=== PATIENT | male | born 1945 | race Asian ===

== ENCOUNTER 2016-06-22 18:21 | Inpatient (IN) | payer OTHER ==
--- NOTE | 2016-06-22 18:41 | CPEKG ---
Heart Rate: 90 RR Interval: 667 P-R Interval: 140 QRSD Interval: 84 QT Interval: 380 QTC Interval: 465 P Moab: 57 QRS Moab: 96 T Wave Moab: -33 EKG Severity - BORDERLINE ECG - EKG Impression: SINUS RHYTHM EKG Impression: PROBABLE LEFT ATRIAL ABNORMALITY EKG Impression: RIGHT AXIS DEVIATION EKG Impression: BORDERLINE T ABNORMALITIES, INFERIOR LEADS Electronically Signed By: Leslie Underwood 22-Jun-2016 21:51:27
[2016-06-22 18:50] LABS: % IMMATURE GRANULYOCYTES 0.4 % (0.0-1.1); ABSOLUTE IMMATURE GRANULOCYTES 0.03 10^3/uL (0.00-0.10); ADD DIFF? NO; ADD MORPH? NO; ADD SCAN? NO; ATYPICAL LYMPHOCYTE FLAG 90 (0-99); FRAGMENT RBC FLAG 20 (0-99); HEMATOCRIT 35.2 % (40.0-51.0); HEMOGLOBIN 11.3 g/dL (13.7-17.5); LEFT SHIFT FLG 0 (0-99); LIPEMIA HEMOLYSIS FLAG 80 (0-99); MEAN CELL HEMOGLOBIN 25.8 pg (27.9-34.1); MEAN CELL HEMOGLOBIN CONCENTR. 32.1 g/dL (32.4-36.7); MEAN CELL VOLUME 80.4 fL (81.5-99.8); MEAN PLATELET VOLUME 10.9 fL (8.7-11.7); PLATELET CLUMPS FLAG 0 (0-99); PLATELET COUNT 233 10^3/uL (150-400); RED BLOOD CELL COUNT 4.38 10^6/uL (4.40-6.38); RED CELL DISTRIBUTION WIDTH 17.5 % (11.5-15.2)
[2016-06-22 19:04] LABS: ANION GAP 10 mEq/L (8-16); CALCIUM 7.2 mg/dL (8.5-10.4); CARBON DIOXIDE 22 mEq/l (22-31); CHLORIDE 102 mEq/L (97-110); CREATININE 1.8 mg/dL (0.7-1.3); GLOMERULAR FILTRATION RATE 37; GLUCOSE 88 mg/dL (70-100); POTASSIUM 4.3 mEq/L (3.5-5.2); SODIUM 134 mEq/L (134-144)
--- NOTE | 2016-06-22 19:05 | DX ---
PA and lateral chest. June 22, 2016. Clinical History: Dyspnea. Comparison Study: March 06, 2016. Findings: Surgical features of median sternotomy are again noted, with moderate cardiac enlargement. Right pleural effusion/fibrosis is unchanged. Small left pleural effusion is present, stable. Pulmona ry vascular prominence and patchy infiltrates in the central aspects of both lungs appear new, potent ially related to congestive failure and interstitial pulmonary edema.. Impression: Status post CABG. Suspect early congestive heart failure with central pulmonary vascular prominence. Stable bilateral pleural disease..
[2016-06-22 19:15] LABS: TROPONIN I 0.016 ng/mL (0-0.034)
--- NOTE | 2016-06-22 19:15 | EDPHY ---
H & P Time Seen by Provider: 06/22/16 18:48 HPI/ROS: CHIEF COMPLAINT: weakness HISTORY OF PRESENT ILLNESS: Patient is a 70-year-old male who presents to the emergency department with fatigue, weakness, shortness of breath and cough. The patient was admitted to the hospital at [facility] on 06/10/2016. They were told that he had a heart attack. On the hospital he became ill and was diagnosed with HCAP septic shock. He was discharged the day before yesterday. He began to feel poorly yesterday. He asked his to take him to the hospital. She recommended they see how he do over the next day. His symptoms were worse today. He describes fatigue and cough. He has severe shortness of breath. He denies chest pain. No nausea or vomiting. No diaphoresis or fever. REVIEW OF SYSTEMS: My complete review of systems is negative except as mentioned in the HPI. Past Medical/Surgical History: Includes encephalopathy, community-acquired pneumonia, chronic kidney disease, ACS, acute IL, gout, pleural effusion, thrombocytopenia, hypokalemia, hyperlipidemia, hypertension, septic shock Smoking Status: Never smoked Physical Exam: Vitals noted. Oxygen saturation 92%. GENERAL: Moderate acute respiratory, alert. HEENT: Eyes normal to inspection, normal pharynx, no signs of dehydration. NECK: No thyromegaly, no lymphadenopathy, supple. RESPIRATORY: Rales bilaterally, mild rhonchi, wheezing. CVS: Regular rate and rhythm, no rubs, murmurs, or gallops. ABDOMEN: Soft, nontender, nondistended, no organomegaly. BACK: Normal to inspection, no CVA tenderness. SKIN: Normal color, no rash, warm, dry. No pallor. EXTREMITIES: No pedal edema, no calf tenderness, no Homans sign or cords, no joint swelling. NEURO/PSYCH: Alert and oriented x3, normal mood and affect, normal motor sensory exam. No obvious cranial nerve deficit. Constitutional: Initial Vital Signs Temperature (C) 37.2 C 06/22/16 18:31 Heart Rate 92 06/22/16 18:31 Respiratory Rate 28 H 06/22/16 18:31 Blood Pressure 171/100 H 06/22/16 18:31 O2 Sat (%) 92 06/22/16 18:31 O2 Delivery Mode Nasal Cannula O2 (L/minute) 2 Allergies/Adverse Reactions: No Known Allergies Allergy (Verified 10/04/15 16:19) Home Medications: Medication Instructions Recorded Metoprolol Tartrate [Lopressor 25 25 mg PO BID 08/10/13 mg (*)] Aspirin EC [Aspirin EC 81 mg (*)] 81 mg PO DAILY 01/23/16 Atorvastatin Calcium [Lipitor 80 80 mg PO HS 06/22/16 mg] oxyCODONE HCL/ACETAMINOPHEN 1 each PO Q4HRS PRN 06/22/16 [Percocet 5-325 mg Tablet] Medical Decision Making - Diagnostics EKG Interpretation: Sinus rhythm at 90. Left atrial abnormality. Right axis deviation. No significant change from previous EKG. No acute ischemia. ED Course/Re-evaluation: In the emergency department I reviewed the patient's discharge paperwork from [facility]. I ordered previous laboratory studies. It is noted patient was diagnosed with HCAP with septic shock. The patient appeared to have respiratory distress on arrival. Respiratory therapist was contacted to try course of BiPAP. Initial chest x-ray showed bilateral infiltrates. I contacted Dr. Bautista from the hospital service for admission. He recommended Zosyn and vancomycin. This was ordered. An arterial blood gas is pending. The patient was given Solu-Medrol 125 mg IV for possible COPD exacerbation. Patient was also given Lasix 40 mg IV for possible CHF. Patient tolerated BiPAP well. I again had a consultation with Dr. Bautista. He requested cardiac echo be ordered. This was completed. Dr. Dawson was informed of the ordered. I reviewed the patient's laboratory studies. PH 7.42, O2 80, CO2 29, base excess-4.3. Patient had normal white count is 7. Hematocrit low at 35. Platelets 233. Patient had an elevated creatinine of 1.8. This was compared with his previous values. He has had elevated creatinine in the past. Troponin is 0.016. BNP elevated at 6060. I discussed the results with patient and family. On recheck he was tolerating BiPAP. 1999: I again discussed the case with Dr. Bautista who was in the emergency department. The patient was tolerating BiPAP well. 2024: Patient is stable 2104: Patient is stable. Tolerating BiPAP well. Differential Diagnosis: My differential includes but is not limited to pneumonia, bacteremia, sepsis, empyema, CHF, ACS, acute IL, renal failure Critical Care Time: Patient required 40 minutes of critical care time. This was exclusive of any on unbundled procedure. This was due to patient's significant respiratory distress, significant time spent with the patient's family, review of his previous records, consultation with Internal Medicine. - Data Points Laboratory Results: Laboratory Results 06/22/16 18:40 06/22/16 18:40 06/22/16 18:40 WBC 7.13 10^3/uL (3.80-9.50) RBC 4.38 L 10^6/uL (4.40-6.38) Hgb 11.3 L g/dL (13.7-17.5) Hct 35.2 L % (40.0-51.0) MCV 80.4 L fL (81.5-99.8) MCH 25.8 L pg (27.9-34.1) MCHC 32.1 L g/dL (32.4-36.7) RDW 17.5 H % (11.5-15.2) Plt Count 233 10^3/uL (150-400) MPV 10.9 fL (8.7-11.7) Neut % (Auto) 68.4 % (39.3-74.2) Lymph % (Auto) 17.8 % (15.0-45.0) Juab % (Auto) 10.8 % (4.5-13.0) Eos % (Auto) 2.2 % (0.6-7.6) Baso % (Auto) 0.4 % (0.3-1.7) Nucleat RBC Rel Count 0.0 % (0.0-0.2) Absolute Neuts (auto) 4.87 10^3/uL (1.70-6.50) Absolute Lymphs (auto) 1.27 10^3/uL (1.00-3.00) Absolute Monos (auto) 0.77 10^3/uL (0.30-0.80) Absolute Eos (auto) 0.16 10^3/uL (0.03-0.40) Absolute Basos (auto) 0.03 10^3/uL (0.02-0.10) Absolute Nucleated RBC 0.00 10^3/uL (0-0.01) Immature Gran % 0.4 % (0.0-1.1) Immature Gran # 0.03 10^3/uL (0.00-0.10) PT 16.4 H SEC (12.0-15.0) INR 1.32 H (0.83-1.16) APTT 39.9 H SEC (23.0-38.0) Sodium 134 mEq/L (134-144) Potassium 4.3 mEq/L (3.5-5.2) Chloride 102 mEq/L (97-110) Carbon Dioxide 22 mEq/l (22-31) Anion Gap 10 mEq/L (8-16) BUN 17 mg/dL (7-23) Creatinine 1.8 H mg/dL (0.7-1.3) Estimated GFR 37 Glucose 88 mg/dL (70-100) Calcium 7.2 L mg/dL (8.5-10.4) Total Bilirubin 0.6 mg/dL (0.1-1.4) Troponin I 0.016 ng/mL (0-0.034) NT-Pro-B Natriuret Pep 6060 H pg/mL (0-125) Medications Given: Discontinued Medications Furosemide (Lasix Injection) 40 mg IVP EDNOW ONE Stop: 06/22/16 19:31 Last Admin: 06/22/16 19:38 Dose: 40 mg Vancomycin/Sodium Chloride (Vancomycin 1 Gm (Premix)) 250 mls @ 250 mls/hr IV EDNOW ONE PRN Reason: Protocol Stop: 06/22/16 20:20 Last Admin: 06/22/16 20:20 Dose: 250 mls Piperacillin/Tazobactam/Dextrose (Zosyn (Premix)) 100 mls @ 200 mls/hr IV EDNOW ONE PRN Reason: Protocol Stop: 06/22/16 19:49 Last Admin: 06/22/16 19:45 Dose: 100 mls Methylprednisolone Sodium Succinate (Solu-Medrol) 125 mg IVP EDNOW ONE Stop: 06/22/16 19:31 Last Admin: 06/22/16 19:35 Dose: 125 mg Departure - Departure Disposition: [facility] Inpatient Acute Clinical Impression: Dyspnea, Pneumonia Condition: Good
[2016-06-22] MEDS ORDERED: PIPERACILLIN/TAZO 4.5 GM/DEX 100 ML IV ONE (19:20)
[2016-06-22] MEDS ORDERED: VANCOMYCIN HCL/NORMAL SALINE 250 ML IV ONE (19:21)
[2016-06-22] MEDS ORDERED: methylPREDNISolone SOD SUCC 125 MG/2 ML VIAL IVP ONE (19:30)
[2016-06-22] MEDS ORDERED: FUROSEMIDE 40 MG/4 ML VIAL IVP ONE (19:30)
[2016-06-22 19:42] LABS: BASE EXCESS -4.3 mEq/L (-2.5-2.5); BICARBONATE 19 mEq/L (22-26); MEASURED OXYGEN SATURATION 96 % (92-95); PCO2 29 mmHg (34-38); PO2 80 mmHg (65-75); TCO2 20 mEq/L (23-27)
[2016-06-22] MEDS ORDERED: IPRATROPIUM/ALBUTEROL 3 ML DEYVIAL ONE (19:42)
[2016-06-22] MEDS ORDERED: ACETAMINOPHEN 325 MG TAB PO PRN (19:42)
[2016-06-22] MEDS ORDERED: ONDANSETRON DISINTEGRATING 4 MG TAB PO PRN (19:42)
[2016-06-22] MEDS ORDERED: ONDANSETRON 4 MG/2 ML VIAL IVP PRN (19:42)
[2016-06-22] MEDS ORDERED: oxyCODONE IR 5 MG TAB PO PRN (19:42)
[2016-06-22 19:44] LABS: BILIRUBIN,TOTAL 0.6 mg/dL (0.1-1.4)
[2016-06-22 20:01] LABS: INR 1.32 (0.83-1.16); PROTIME(PATIENT) 16.4 SEC (12.0-15.0)
[2016-06-22 20:02] LABS: APTT 39.9 SEC (23.0-38.0)
[2016-06-22] MEDS ORDERED: LORazepam 2 MG/ML INJ ONE (20:09)
--- NOTE | 2016-06-22 20:55 | GHP ---
[f rep st] HISTORY AND PHYSICAL DATE OF ADMISSION: 06/22/2016 CHIEF COMPLAINT: Trouble breathing. HISTORY OF PRESENT ILLNESS: This is a 70-year-old man who was just recently discharged from [facility] with a diagnosis of pneumonia, septic shock, and NSTEMI, who presents with dyspnea. This started yesterday. He tells me he has felt like he needs to cough, but is having trouble coughing. He felt very short of breath. It is very difficult for him to do minimal activity. He is denying any chest pain. PAST MEDICAL/SURGICAL HISTORY: 1. Coronary artery disease, status post CABG. 2. Hypertension. 3. Hyperlipidemia. 4. Gout. 5. History of pleural effusion requiring VATS. 6. Chronic kidney disease. MEDICATIONS: Please see medication reconciliation. ALLERGIES: None. SOCIAL HISTORY: He does not smoke and does not drink. He is and retired. FAMILY HISTORY: Parents are . REVIEW OF SYSTEMS: A 10-point review of systems is negative except per HPI. PHYSICAL EXAMINATION: VITAL SIGNS: Blood pressure is 139/85, heart rate is 84 , respiration rate is 32, satting 100% on 2 L, and temperature is 38.7. GENERAL : The patient is an uncomfortable man in moderate distress, breathing very rapidly, and having difficulty speaking in more than 1-word sentences. HEENT: Shows no scleral icterus. CARDIOVASCULAR: Exam shows him to be borderline tachycardic. There are no murmurs, rubs, or gallops. PULMONARY: Exam shows diffuse rhonchi and wheezes, as well as rales. ABDOMEN: Exam is soft, nontender, and nondistended. SKIN: Exam showed no rash. : Exam shows no Daly. NEUROLOGIC: Exam shows him to be alert and oriented x3. Moving all extremities. Nonfocal neurologic exam. PSYCHIATRIC: Exam shows a normal mood and affect. LABORATORY DATA: CBC shows a hemoglobin of 11.3. INR is 1.3. Blood gas shows respiratory alkalosis. Creatinine is 1.8. BNP is 6000. Troponin is 0.016. DATA: 1. I discussed with Dr. Underwood. We will plan to admit to the ED. 2. Chest x-ray which I personally viewed and interpreted shows diffuse bilateral infiltrates. He has pleural effusions as well. 3. ECG shows a sinus rhythm. He has flattening in his T-waves in II, III, and F. He has a right axis deviation. These findings are similar to the previous EKG. IMPRESSION AND PLAN: This is a 70-year-old man who presents in respiratory failure. 1. Respiratory failure, hypoxic: Clearly quite dyspneic. Respiratory alkalosis. Placing him on BiPAP now. He has diffuse bilateral infiltrates - these are somewhat chronic, he has a history of a VATS and pleurodesis. He is getting lasix. I considered PE, though I think it is less likely given the appearance of this chest x-ray. If he does not improve would strongly consider this diagnosis. Currently, other than his respiratory status, his vitals are relatively normal. The differential here includes pneumonia which I think is most likely given his fever; also consider acute heart failure given his history of CABG and diffuse bilateral infiltrates. He had been placed on broad- spectrum antibiotics. Blood cultures have been sent. A stat echocardiogram has been ordered. Troponins will be trended. Notably, his last EF was 75%, with a normal LV. He will be admitted to the ICU. 2. Acute on chronic kidney disease: Suspect this is hemodynamic. This may be actually his baseline. We will avoid nephrotoxins. We will avoid overly hydrating him right now given the concern for pleural effusions. 3. Code status: I discussed this extensively with both the patient, his son, and his . They are clear that he would not want to be intubated. We will try all other measures. 4. History of coronary artery disease, status post CABG: We will restart his cardiac medications when they are available. 5. VTE risk: He is moderate to high. I will place him on subcu heparin. ADDENDUM: echo report by Dr Dawson with normal EF, normal valves. /[id number]/MODL MTDD
[2016-06-22 21:31] LABS: COLOR PALE YELLOW; LEUKOCYTE ESTERASE,URINE NEGATIVE (NEGATIVE); NITRITE,URINE NEGATIVE (NEGATIVE)
[2016-06-22 21:38] LABS: WBC,URINE NONE SEEN /hpf (0-3)
[2016-06-22] MEDS: HEPARIN 5,000 UNIT/0.5 ML SYR SC SCH (22:39)
[2016-06-23] MEDS: methylPREDNISolone SOD SUCC 125 MG/2 ML VIAL IVP SCH ×3 (00:51→12:01)
[2016-06-23] MEDS: HEPARIN 5,000 UNIT/0.5 ML SYR SC SCH ×3 (06:08→21:30)
[2016-06-23] MEDS: PIPERACILLIN/TAZO 3.375 GM/DEX 50 ML IV SCH ×4 (06:08→23:48)
[2016-06-23 06:37] LABS: % IMMATURE GRANULYOCYTES 0.5 % (0.0-1.1); ABSOLUTE IMMATURE GRANULOCYTES 0.02 10^3/uL (0.00-0.10); ADD DIFF? NO; ADD MORPH? NO; ADD SCAN? NO; ATYPICAL LYMPHOCYTE FLAG 70 (0-99); FRAGMENT RBC FLAG 60 (0-99); HEMATOCRIT 35.8 % (40.0-51.0); HEMOGLOBIN 11.3 g/dL (13.7-17.5); LEFT SHIFT FLG 10 (0-99); LIPEMIA HEMOLYSIS FLAG 80 (0-99); MEAN CELL HEMOGLOBIN 25.1 pg (27.9-34.1); MEAN CELL HEMOGLOBIN CONCENTR. 31.6 g/dL (32.4-36.7); MEAN CELL VOLUME 79.4 fL (81.5-99.8); MEAN PLATELET VOLUME 10.5 fL (8.7-11.7); PLATELET CLUMPS FLAG 10 (0-99); PLATELET COUNT 188 10^3/uL (150-400); RED BLOOD CELL COUNT 4.51 10^6/uL (4.40-6.38); RED CELL DISTRIBUTION WIDTH 17.2 % (11.5-15.2)
[2016-06-23 06:42] LABS: ALANINE AMINOTRANSFERASE 25 IU/L (21-72); ALBUMIN 2.1 g/dL (3.5-5.0); ALKALINE PHOSPHATASE 124 IU/L (38-126); ANION GAP 11 mEq/L (8-16); ASPARTATE AMINOTRANSFERASE 33 IU/L (17-59); BILIRUBIN,TOTAL 0.8 mg/dL (0.1-1.4); CALCIUM 7.2 mg/dL (8.5-10.4); CARBON DIOXIDE 23 mEq/l (22-31); CHLORIDE 102 mEq/L (97-110); GLOMERULAR FILTRATION RATE 33; GLUCOSE 127 mg/dL (70-100); SODIUM 136 mEq/L (134-144); TOTAL PROTEIN 6.9 g/dL (6.3-8.2)
[2016-06-23 06:53] LABS: TROPONIN I 0.013 ng/mL (0-0.034)
--- NOTE | 2016-06-23 08:30 | US ---
Ultrasound Venous Duplex Doppler - Bilateral Legs at 6:18 AM hours History: Edema. Findings: Ultrasound venous Duplex and Doppler imaging of the bilateral common femoral veins, femoral veins, popliteal veins, calf veins, and greater saphenous vein origins demonstrates normal compressi bility, Duplex color-flow, Doppler flow without deep venous thrombosis. Atherosclerotic plaque formation is present throughout the arterial system of the lower extremities b ilaterally. Impression: No deep venous thrombosis bilateral legs.
--- NOTE | 2016-06-23 08:52 | ECHO ---
[id number] + + [address] : : [place] [address] : : [phone] + + Adult Echocardiographic Report + + :Name: LALY CRUZ Study Date: 06/22/2016 09:25 PM : : Hospital Admission Number: [id number] : :: 1945 Gender: Male Height: 60 in : :Age: 70 yrs Race: , Weight: 124 lb : :Reason For Study: Eval LV Fx : : BSA: 1.5 meters2: :History: Bi-PAP, SOB, Elevated BNP : + + MMode/2D Measurements & Calculations IVSd: 0.99 cm LVIDd: 3.2 cm FS: 39.3 % Ao root diam: 3.0 cm LVPWd: 1.0 cm LVIDs: 1.9 cm EDV(Teich): 40.3 ml ACS: 1.8 cm ESV(Teich): 11.6 ml EF(Teich): 71.2 % Normal Measurement Values: + + :LVIDd (3.5-5.7cm) IVSd (0.6-1.1cm) LVPWd (0.6-1.1cm) Aortic Root (2.0-3.7cm)Left Atrium (1.5-4.0cm): :LV Vol(d) (76-115ml) LV Vol(s) (29-48ml) Ejec Fraction (50-65%)PV Jarred (0.6- 1.2m/s) TV Jarred (0.4-1.0m/s) : :MV E Jarred (0.8-1.0m/s)MV A Jarred (0.3-1.0m/s)LVOT Jarred (0.7-1.2m/s) Asc Ao Jarred ( 0.9-1.8m/s) : + + Doppler Measurements & Calculations MV E max jarred: Ao V2 max: LV V1 max: PA V2 max: 126.0 cm/sec 134.0 cm/sec 66.6 cm/sec 110.0 cm/sec MV A max jarred: Ao max PG: LV V1 max PG: PA max P.0 cm/sec 7.2 mmHg 1.8 mmHg 4.8 mmHg MV E/A: 1.3 TR max jarred: 316.0 cm/sec TR max P.9 mmHg RAP systole: 10.0 mmHg RVSP(TR): 49.9 mmHg Left Ventricle The left ventricle is normal in size and function. There is normal left ventricular wall thickness. The left ventricular ejection fraction is normal. There is Doppler evidence for diastolic dysfunction. Ejection Fraction = 72%. The left ventricular wall motion is normal. Right Ventricle The right ventricle is normal in size and function. Atria The left atrium is moderately dilated. Right atrial size is normal. Mitral Valve The mitral valve is normal in structure and function. There is no evidence of mitral valve prolapse. There is no mitral valve stenosis. There is mild mitral regurgitation. Tricuspid Valve There is mild tricuspid regurgitation. Right ventricular systolic pressure is 50mmHg. There is Doppler evidence for moderate pulmonary hypertension. Aortic Valve The aortic valve is trileaflet. There is no aortic stenosis. Mild aortic regurgitation. Pulmonic Valve The pulmonic valve is normal in structure and function. Great Vessels The aortic root is normal size. Pericardium/Pleural There is no pericardial effusion. Conclusion A complete two-dimensional transthoracic echocardiogram was performed (2D, M-mode, Doppler and color flow Doppler). The left ventricle is normal in size and function. The left ventricular ejection fraction is normal. There is Doppler evidence for diastolic dysfunction. Ejection Fraction = 72%. The left ventricular wall motion is normal. The left atrium is moderately dilated. The mitral valve is normal in structure and function. There is mild mitral regurgitation. There is mild tricuspid regurgitation. Right ventricular systolic pressure is 50mmHg. There is Doppler evidence for moderate pulmonary hypertension. The aortic valve is trileaflet. Mild aortic regurgitation. There is no pericardial effusion. Compared to prior study dated 01/24/2016 there has been no significant change. Final Reading Physician: Dez Crawford signed on 06/23/2016 08:51 AM Ordering Physician: JAY GAONA Performed By: Mario Ronquillo, CS
[2016-06-23] MEDS ORDERED: ENOXAPARIN 40 MG/0.4 ML SYR SC SCH (09:00)
[2016-06-23] MEDS ORDERED: OXYCODONE/APAP 5/325 TAB PO PRN (12:17)
[2016-06-23] MEDS ORDERED: FUROSEMIDE 40 MG/4 ML VIAL IVP ONE (12:24)
--- NOTE | 2016-06-23 12:45 | DX ---
Portable AP chest. June 23, 2016At 1236 History: Follow-up CHF. Comparison exam: June 22, 2016 Findings: Interval decreasing interstitial thickening compatible with resolving congestive heart fail ure. Right costophrenic angle blunting is stable. Cardiac silhouette remains markedly enlarged post m edian sternotomy. Impression: Decreasing congestive heart failure.
[2016-06-23] MEDS ORDERED: PNEUMOC 13-VAL CONJ-DIP CRM/PF 0.5 ML SYR IM ONE (13:36)
--- NOTE | 2016-06-23 15:59 | HOSPPROG ---
Hospitalist Progress Note Assessment/Plan: * acute respiratory failure * pneumonia versus CHF * favoring CHF since improved so dramatically with overnight * chest x-ray also looks better * he did have a fever however * possible pneumonia * continue Zosyn * will discontinue vancomycin * not quite convinced that he does have pneumonia * diastolic CHF * continue Lasix * history of coronary artery disease * history of pleural effusions status post VATS * severe gout * chronic renal insufficiency Subjective: feels better. No dyspnea. No chest pain. Minimal cough Objective: Vital Signs Temp Pulse Resp BP Pulse Ox 35.8 C L 80 25 H 129/77 H 95 06/23/16 15:39 06/23/16 15:39 06/23/16 15:39 06/23/16 15:39 06/23/16 15:39 Laboratory Results 06/23/16 06:05 06/23/16 06:05 06/22/16 06/23/16 06/24/16 05:59 05:59 05:59 Intake Total 373 Output Total 225 250 Balance -225 123 PT 16.4 SEC (12.0-15.0) H 06/22/16 18:40 INR 1.32 (0.83-1.16) H 06/22/16 18:40 chest x-ray personally viewed interpreted shows improvement of pulmonary edema discussed with pulmonology - Physical Exam Constitutional: no apparent distress, appears nourished, not in pain Eyes: anicteric sclera, EOMI Ears, Nose, Mouth, Throat: moist mucous membranes, hearing normal, ears appear normal Cardiovascular: regular rate and rhythym, no murmur, rub, or gallop Respiratory: other ( bilateral rales) Gastrointestinal: normoactive bowel sounds, soft, non-tender abdomen, no palpable masses Skin: warm Neurologic: AAOx3 Psychiatric: interacting appropriately, not anxious, not encephalopathic, thought process linear ICD10 Worksheet Patient Problems: Problems Problem Status Diagnosed Dyspnea Acute Pneumonia Acute Pleural effusion Acute Hyperlipemia Chronic Right cavernous carotid stenosis Chronic Stenosis of right carotid artery Chronic
[2016-06-23] MEDS ORDERED: ATORVASTATIN CALCIUM 40 MG TAB PO SCH (21:00)
[2016-06-23] MEDS ORDERED: VANCOMYCIN 750 MG in D5W 150 ML IV SCH (21:00)
[2016-06-23] MEDS ORDERED: NON-FORMULARY NEW DRUG (Atorvastatin Calcium [Lipitor 80 Mg] 80 MG) PO SCH (21:00)
[2016-06-23] MEDS: ATORVASTATIN CALCIUM 40 MG TAB PO SCH (21:31)
[2016-06-23] MEDS: METOPROLOL TARTRATE 25 MG TAB PO SCH (21:33)
[2016-06-24] MEDS: HYDROcodone/CPM TUSSIONEX 5 ML UDSYR PO PRN ×2 (01:08→21:03)
[2016-06-24 05:28] LABS: % IMMATURE GRANULYOCYTES 0.2 % (0.0-1.1); ABSOLUTE IMMATURE GRANULOCYTES 0.01 10^3/uL (0.00-0.10); ADD DIFF? NO; ADD MORPH? NO; ADD SCAN? NO; ATYPICAL LYMPHOCYTE FLAG 80 (0-99); FRAGMENT RBC FLAG 40 (0-99); HEMATOCRIT 32.2 % (40.0-51.0); HEMOGLOBIN 10.5 g/dL (13.7-17.5); LEFT SHIFT FLG 10 (0-99); LIPEMIA HEMOLYSIS FLAG 80 (0-99); MEAN CELL HEMOGLOBIN 25.2 pg (27.9-34.1); MEAN CELL HEMOGLOBIN CONCENTR. 32.6 g/dL (32.4-36.7); MEAN CELL VOLUME 77.2 fL (81.5-99.8); PLATELET CLUMPS FLAG 10 (0-99); PLATELET COUNT 230 10^3/uL (150-400); RED BLOOD CELL COUNT 4.17 10^6/uL (4.40-6.38); RED CELL DISTRIBUTION WIDTH 17.3 % (11.5-15.2)
[2016-06-24 05:31] LABS: ANION GAP 12 mEq/L (8-16); CARBON DIOXIDE 23 mEq/l (22-31); CHLORIDE 103 mEq/L (97-110); CREATININE 2.4 mg/dL (0.7-1.3); GLOMERULAR FILTRATION RATE 27; GLUCOSE 126 mg/dL (70-100); SODIUM 138 mEq/L (134-144)
[2016-06-24] MEDS: HEPARIN 5,000 UNIT/0.5 ML SYR SC SCH ×3 (05:46→21:02)
[2016-06-24] MEDS: PIPERACILLIN/TAZO 3.375 GM/DEX 50 ML IV SCH (05:47)
[2016-06-24] MEDS ORDERED: FUROSEMIDE 40 MG/4 ML VIAL IVP SCH (09:00)
[2016-06-24] MEDS: ASPIRIN EC 81 MG TAB PO SCH (09:22)
[2016-06-24] MEDS: METOPROLOL TARTRATE 25 MG TAB PO SCH ×2 (09:22→21:02)
--- NOTE | 2016-06-24 11:37 | HOSPPROG ---
Hospitalist Progress Note Assessment/Plan: 70-year-old male with a history of idiopathic pleural effusion status post VATS in the summer as well as chronic kidney disease with recent admission to [facility] for pneumonia presents with respiratory failure shortly after discharge * acute hypoxic respiratory failure * pneumonia versus CHF versus both * favored CHF yesterday since improved so dramatically with overnight but continues to have rhonchi on exam and creatinine is going up * probably an element of both * chest x-ray also looks better * he did have a fever however * possible pneumonia * reviewed his records from [facility]. He was discharged on the . He was treated with Zosyn for pneumonia. He also had an episode of aspiration of barium swallow * since he is getting better will continue Zosyn * he is off vancomycin * since creatinine has gone up and he continues to have rhonchi suspect that pneumonia is playing a role * diastolic CHF * stop Lasix * history of coronary artery disease * history of pleural effusions status post VATS * severe gout * chronic renal insufficiency * worsening creatinine * will DC Lasix * disposition * will keep another day since he appeared to fail outpatient antibiotics on Augmentin although not sure if he had been taking it Subjective: Continues to feel better. Mild cough with white sputum Objective: Vital Signs Temp Pulse Resp BP Pulse Ox 36.6 C 76 16 117/72 95 06/24/16 07:11 06/24/16 07:11 06/24/16 07:11 06/24/16 07:11 06/24/16 07:11 Laboratory Results 06/24/16 03:53 06/24/16 03:53 06/23/16 06/24/16 06/25/16 05:59 05:59 05:59 Intake Total 823 Output Total 225 250 275 Balance -225 573 -275 PT 16.4 SEC (12.0-15.0) H 06/22/16 18:40 INR 1.32 (0.83-1.16) H 06/22/16 18:40 - Physical Exam Constitutional: no apparent distress, appears nourished, not in pain Eyes: anicteric sclera, EOMI Ears, Nose, Mouth, Throat: moist mucous membranes, hearing normal Cardiovascular: regular rate and rhythym, no murmur, rub, or gallop Respiratory: no respiratory distress, rhonchi ( bilateral rhonchi) Gastrointestinal: normoactive bowel sounds, soft, non-tender abdomen, no palpable masses Skin: warm Musculoskeletal: other ( destructive gout) Neurologic: AAOx3 Psychiatric: interacting appropriately, not anxious, not encephalopathic, thought process linear ICD10 Worksheet Patient Problems: Problems Problem Status Diagnosed Dyspnea Acute Pneumonia Acute Pleural effusion Acute Hyperlipemia Chronic Right cavernous carotid stenosis Chronic Stenosis of right carotid artery Chronic
[2016-06-24] MEDS: PIPERACILLIN SODIUM/TAZOBACTAM 3.375 GM in D5W 50 ML IV SCH ×3 (12:20→23:38)
[2016-06-24 19:25] VITALS: RESP 18
[2016-06-24] MEDS: ATORVASTATIN CALCIUM 40 MG TAB PO SCH (21:02)
[2016-06-25 04:10] VITALS: PULSE 70
[2016-06-25] MEDS: PIPERACILLIN SODIUM/TAZOBACTAM 3.375 GM in D5W 50 ML IV SCH (06:08)
[2016-06-25] MEDS: HEPARIN 5,000 UNIT/0.5 ML SYR SC SCH (06:09)
[2016-06-25 06:25] LABS: % IMMATURE GRANULYOCYTES 0.5 % (0.0-1.1); ABSOLUTE IMMATURE GRANULOCYTES 0.03 10^3/uL (0.00-0.10); ADD DIFF? NO; ADD MORPH? NO; ADD SCAN? YES; FRAGMENT RBC FLAG 20 (0-99); HEMATOCRIT 30.6 % (40.0-51.0); HEMOGLOBIN 9.9 g/dL (13.7-17.5); LEFT SHIFT FLG 10 (0-99); LIPEMIA HEMOLYSIS FLAG 80 (0-99); MEAN CELL HEMOGLOBIN 25.4 pg (27.9-34.1); MEAN CELL HEMOGLOBIN CONCENTR. 32.4 g/dL (32.4-36.7); MEAN CELL VOLUME 78.5 fL (81.5-99.8); MEAN PLATELET VOLUME 11.1 fL (8.7-11.7); PLATELET CLUMPS FLAG 0 (0-99); PLATELET COUNT 205 10^3/uL (150-400); RED CELL DISTRIBUTION WIDTH 17.1 % (11.5-15.2)
[2016-06-25 06:27] LABS: ATYPICAL LYMPHOCYTE FLAG 170 (0-99)
[2016-06-25 07:12] LABS: SCAN POSITIVE
[2016-06-25 07:18] LABS: GIANT PLATELETS PRESENT; HYPOCHROMIA 1+; LARGE PLATELETS PRESENT; PLATELET ESTIMATE ADEQUATE (ADEQ); POLYCHROMASIA 1+
[2016-06-25 07:19] LABS: SCHISTOCYTES 1+
[2016-06-25 07:28] LABS: ANION GAP 9 mEq/L (8-16); CALCIUM 6.9 mg/dL (8.5-10.4); CARBON DIOXIDE 26 mEq/l (22-31); CHLORIDE 104 mEq/L (97-110); CREATININE 2.3 mg/dL (0.7-1.3); GLOMERULAR FILTRATION RATE 28; GLUCOSE 94 mg/dL (70-100); POTASSIUM 3.4 mEq/L (3.5-5.2); SODIUM 139 mEq/L (134-144)
[2016-06-25 08:04] VITALS: BP 110/64; TEMP 98.2
[2016-06-25] MEDS: METOPROLOL TARTRATE 25 MG TAB PO SCH (09:04)
[2016-06-25] MEDS: ASPIRIN EC 81 MG TAB PO SCH (09:04)
--- NOTE | 2016-06-25 09:15 | DX ---
Portable Chest, 6:08 AM History: Dyspnea Comparison: June 23 Findings: Cardiomegaly , pulmonary vascular plethora and right lung interstitial edema remains. There is little if any change in blunting of the costophrenic gutters consistent with small effusions. Th ere is stable elevation of the right hemidiaphragm that may indicate subpulmonic fluid. Median sterno carly wires and CABG clips remain. EKG leads again overlie the chest. Impression: Little if any change in CHF since June 23.
--- NOTE | 2016-06-25 09:44 | PDIAF ---
- Diagnosis Diagnosis: pneumonia Code Status: Do Not Resuscitate - Medication Management Discharge Medications: Medications to Continue on Transfer Metoprolol Tartrate [Lopressor 25 mg (*)] 25 mg PO BID 08/10/13 [Last Taken 08:00] Aspirin EC [Aspirin EC 81 mg (*)] 81 mg PO DAILY 01/23/16 [Last Taken 06/22/16 08:00] Atorvastatin Calcium [Lipitor 80 mg] 80 mg PO HS 06/22/16 [Last Taken 06/21/16] oxyCODONE HCL/ACETAMINOPHEN [Percocet 5-325 mg Tablet] 1 each PO Q4HRS PRN 06/22 [Last Taken 06/15/16] levOFLOXACIN [Levofloxacin] 750 mg PO DAILY #4 tablet 06/25/16 [Last Taken Unknown] Discharge Medications: Refer to the Discharge Home Medication list for PRN reason. - Orders Services needed: Home Care, Registered Nurse Home Care Face to Face: I certify that this patient was under my care and that I had the required [id number] encounter meeting the encounter requirements on the discharge day. My findings support the fact that the patient is homebound as defined in CMS Chapter 7 Medicare Benefits Manual 30.1.1, The condition of the patient is such that there exists a normal inability to leave home and consequently, leaving home would require a considerable and taxing effort. Diet Recommendation: cardiac -low fat low salt Diet Texture: Regular Texture Diet - Follow Up Care Current Providers and Referrals: Ricci Vizcarra DO [Primary Care Provider] - As per Instructions
--- NOTE | 2016-06-25 11:03 | PDIAF ---
- Diagnosis Diagnosis: pneumonia Code Status: Do Not Resuscitate - Medication Management Discharge Medications: Medications to Continue on Transfer Metoprolol Tartrate [Lopressor 25 mg (*)] 25 mg PO BID 08/10/13 [Last Taken 08:00] Aspirin EC [Aspirin EC 81 mg (*)] 81 mg PO DAILY 01/23/16 [Last Taken 06/22/16 08:00] Atorvastatin Calcium [Lipitor 80 mg] 80 mg PO HS 06/22/16 [Last Taken 06/21/16] oxyCODONE HCL/ACETAMINOPHEN [Percocet 5-325 mg Tablet] 1 each PO Q4HRS PRN 06/22 [Last Taken 06/15/16] levOFLOXACIN [Levofloxacin] 750 mg PO EVERY OTHER DAY #3 tablet 06/25/16 [Last Taken Unknown] Discharge Medications: Refer to the Discharge Home Medication list for PRN reason. - Orders Services needed: Home Care, Registered Nurse, Physical Therapy Home Care Face to Face: I certify that this patient was under my care and that I had the required [id number] encounter meeting the encounter requirements on the discharge day. My findings support the fact that the patient is homebound as defined in CMS Chapter 7 Medicare Benefits Manual 30.1.1, The condition of the patient is such that there exists a normal inability to leave home and consequently, leaving home would require a considerable and taxing effort. Diet Recommendation: cardiac -low fat low salt Diet Texture: Regular Texture Diet - Follow Up Care Current Providers and Referrals: Ricci Vizcarra DO [Primary Care Provider] - As per Instructions
[2016-06-25 12:11] VITALS: O2SAT 88
--- NOTE | 2016-06-26 04:31 | GDS ---
[f rep st] DISCHARGE SUMMARY DISCHARGE DIAGNOSES: 1. Acute hypoxic respiratory failure thought multifactorial secondary to aspiration pneumonia and he art failure. 2. Suspected pneumonia. 3. Diastolic heart failure, acute. 4. Coronary artery disease. 5. History of pleural effusion, status post VATS. 6. Gout. 7. Chronic renal insufficiency. HISTORY OF PRESENT ILLNESS: A 70-year-old male with a known history of idiopathic pleural effusion, status post VATS, and CKD, who presents with complaints of shortness of breath, with a recent hospita lization at [facility]. For details of the patient's initial presentation, please see the Histor y and Physical dated 06/22/2016. CONSULTATIVE SERVICES ON THIS PATIENT: None. PROCEDURES: None. HOSPITAL COURSE BY ISSUE: 1. Acute hypoxic respiratory failure. Patient had chest x-ray findings consistent with minimal vasc ular congestion and suspected pulmonary infiltrates, was initiated on treatment with both IV antibiot ics as well diuretics. He had rapid improvement on these therapies. On the day of disposition has b een weaned to room air, and is being discharged off diuretics and on 3 additional days of antibiotics to complete a full 10-day course. 2. Suspected pneumonia. The patient did have a previous diagnosis of pneumonia at an outside hospit al. Had received some antibiotics for that prior to re-presenting. Blood cultures drawn in the [facility] department have remained no growth. The patient has received broad-spectrum antibiotic with Zo syn while inpatient, is being transitioned to oral levofloxacin dose q.48 to complete a full 10-day c ourse. The patient walked with Occupational and Physical Therapy today, and did not desaturate even with exertion. 3. Acute diastolic heart failure. Vascular congestion was appreciated on chest imaging. Patient re sponded well to several doses of IV Lasix. We do not believe this is a therapy that needs to be cont inued on disposition, as patient appears euvolemic and is on room air. 4. Severe gout. This is a chronic condition. 5. Coronary artery disease. Patient did not have chest pain complaints, and was continued on his ho me regimen without change. MEDICATIONS AT THE TIME OF DISPOSITION: Please reference medication reconciliation printed on 2016. FOLLOWUP APPOINTMENTS FOR THIS PATIENT: Include with his outpatient cardiology team, as well as his primary care provider in the next 7 to 10 days for post disposition followup. The patient is additio main being discharged with home health nursing for vital sign checks and discharge help. I spent greater than 30 minutes in the planning and coordination of this discharge. /[id number]/MODL
== END 2016-06-25 12:10 | disposition home health service (06) | DRG 280 ==
LOC: F2N 22:16 → F2W 06-23 15:34
PROVIDERS: ADMIT Student in an Organized Health Care Education/Training Program; ATTEND Student in an Organized Health Care Education/Training Program
DX: I50.31 Acute diastolic (congestive) heart failure (principal); J69.0 Pneumonitis due to inhalation of food and vomit; J96.91 Respiratory failure, unspecified with hypoxia; I21.4 Non-ST elevation (NSTEMI) myocardial infarction; I25.10 Atherosclerotic heart disease of native coronary artery without angina pectoris; I12.9 Hypertensive chronic kidney disease with stage 1 through stage 4 chronic kidney disease, or unspecified chronic kidney disease; N18.9 Chronic kidney disease, unspecified; Z95.1 Presence of aortocoronary bypass graft; M1A.9XX0 Chronic gout, unspecified, without tophus (tophi); Z87.01 Personal history of pneumonia (recurrent)
CPT/HCPCS: 96374; 97162-GP; G0009; G8978-GP-CI; G8979-GP-CI; G8980-GP-CI; J2543; J3370

== ENCOUNTER → 2016-07-02 | Outpatient (CLI) | payer OTHER ==
--- NOTE | 2016-07-02 11:59 | US ---
Limited abdominal sonogram History: Acute renal failure, N17.9,N18.9 Comparison: None Findings: The right kidney measures 8.8 and the left kidney 9.6 cm in length. Right renal volume = 11 1 mL and left renal volume 135 mL. I suspect there is some cortical scarring involving the upper pole of the right kidney. There is no hydronephrosis or perinephric fluid. There is fluid in the urinary bladder. Prevoid volume = 62 mL. Postvoid residual = 5 mL. Impression: No obstruction.
== END ==
LOC: BRMIMAGING 11:01
PROVIDERS: ATTEND Family Medicine
DX: N17.9 Acute kidney failure, unspecified (principal); N18.9 Chronic kidney disease, unspecified
CPT/HCPCS: 76770-PO